=== PATIENT | female | born 1945 ===

== ENCOUNTER 2024-03-09 06:15 | Day surgery (SDC) | payer OTHER ==
[2024-03-09] MEDS ORDERED: levoFLOXacin 750 MG TABLET PO STA (11:16)
[2024-03-09] MEDS ORDERED: levoFLOXacin IN DEXTROSE 5 % 5 MG/ML PIGGYBAG IV STA (11:26)
[2024-03-09] MEDS ORDERED: MIDAZOLAM HCL 2 MG/2 ML VIAL IV ONE (11:30)
[2024-03-09] MEDS ORDERED: DIPHENHYDRAMINE HCL 50 MG/ML VIAL 1ML IV ONE (11:30)
[2024-03-09] MEDS ORDERED: fentaNYL CITRATE 50 MCG/ML AMPUL IV PUSH ONE (11:30)
== END 2024-03-09 13:30 | disposition home or self-care (01) ==
LOC: AMB-ENDOS 06:15
PROVIDERS: ATTEND Surgery
DX: K91.30 Postprocedural intestinal obstruction, unspecified as to partial versus complete (principal); K62.4 Stenosis of anus and rectum